=== PATIENT | female | born 1995 | race Caucasian/White ===

== ENCOUNTER 2025-01-26 20:14 | Emergency (ER) | payer BC, SELFPAY ==
[2025-01-26 20:21] VITALS: BP 143/105
--- NOTE | 2025-01-26 21:00 | ED.CVA ---
History of Present Illness
General
Chief Complaint: CVA/TIA Symptoms
Source: patient and significant other
Time Seen by Provider: 01/26/25 20:42
Onset of Stroke Symptoms
Onset of symptoms known: Yes
Date of onset of symptoms: 01/26/25
History of Present Illness
History of Present Illness:
This patient is a 29-year-old female with a history of migraines with aura. A typical migraine with aura is described as 'ripples' in her right visual field that gradually gets larger over period of 5 to 10 minutes and then self resolves. Rarely
she will get an associated mild headache. She says this has happened since she has been in college, but infrequently. It has been happening more frequently recently, most recently a few weeks ago. Today, she developed what she describes as a
typical 'aura' described as something happening in her right visual field described as ripples that grew in size. However, she also had a very short-lived episode of feeling like she could not formulate words. This made her very anxious. She
wondered whether or not it was related to hypoglycemia so on her way here she went to a store and intentionally ingested several sugar packets as well as Oreos, orange juice. She is now asymptomatic. She denies numbness, chest pain, shortness of
breath, double vision, slurred speech, neck pain, recent trauma, nausea, vomiting, abdominal pain, dizziness, difficulty walking. She described feeling weak in her right arm and leg that lasted just a moment or 2, when asked to describe this
further she said it just felt 'off', but she was able to move her right arm and leg as usual and perform typical tasks. Patient is on Zepbound and just took her injection yesterday. She has been on this medication for several months/almost a year.
Past History
Past History
ED Past Medical History: Hyperthyroidism and Other (Migraine with aura)
ED Past Surgical History: Other
Social History
Tobacco: Non-smoker
Alcohol: Occasional
Drug: None
Employment: Employed
Phy Exam
Physical Exam
Physical Exam:
GENERAL: Alert , in no apparent distress
EYE: pupils equal and reactive, no photophobia, EOMI, no nystagmus
NECK: Supple, no significant adenopathy.
ENT: o/p clr, mmm.
CARDIAC: Regular rate and rhythm .
LUNGS: Clear breath sounds bilaterally, no acute respiratory distress, no wheezes/rales/rhonchi
ABDOMEN: Soft, without focal tenderness, no r/g, no cvat
NEUROLOGICAL: Alert and oriented, no focal neuro deficits, NIH equal to 0, [id number] normal, motor 5 out of 5, sensory intact, cranial nerves II through XII intact, gait normal
SKIN: Warm and dry, skin intact.
MUSCULOSKELETAL: No edema, well perfused.
PSYCH: Normal and appropriate interaction.
Course
Orders/Labs/Results
Orders:
Orders
01/26/25 21:00
CT Head W/o Iv Contrast Urgent
Comment:
Reason For Exam: weakness, visual complnts, etc
Cardiac Monitoring- Treatment ONCE
Test Result ONCE
01/26/25 21:11
Complete Blood Count/No Diff Urgent
Comprehensive Metabolic Panel Urgent
HCG, Serum Qualitative Screen Urgent
TSH Urgent
Comment: ADD ON
01/26/25 21:58
CT Head & Neck Angio W/wo IV Urgent
Comment:
Reason For Exam: visual changes, speech difficulty
01/26/25 22:02
Add On- LAB Urgent
Tests Added?: tsh
Abnormal Lab Results
01/26/25
21:11
Sodium 134 L mmol/L
(135-145)
01/26/25 21:11
01/26/25 21:11
Vital Signs
Initial and Last Documented VS:
Initial Vital Signs
Temp Pulse Resp BP Pulse Ox
97.4 F 95 16 143/105 100
01/26/25 20:21 01/26/25 20:21 01/26/25 20:21 01/26/25 20:21 01/26/25 20:21
Last Documented Vital Signs
Temp Pulse Resp BP Pulse Ox
97.4 F 86 24 107/64 97
01/26/25 20:21 01/26/25 22:15 01/26/25 22:15 01/26/25 22:00 01/26/25 22:15
*Pulse Oximetry
SaO2: 100
Oxygen Mode of Delivery: Room air
Patient hypoxic: no
*Critical Care Note
Total Time (30-74mins, 75-104mins- exclusive of procedures): Not Applicable
Update Note
Update Note:
Patient presents to the Emergency Department with ___visual abnormalities associated with word finding difficulties and questionable weakness
Number and Complexity of Problems Addressed at the Encounter
� Chronic conditions affecting care:
� Acute Exacerbation and/or Progression of Chronic Illness:
� Differential Diagnosis includes: But not limited to migraine with aura, anxiety, TIA, etc. etc.
Amount and/or Complexity of Data to be Reviewed and Analyzed
� I performed an independent evaluation of and my interpretation is:
EKG:
CT:[facility]
[address] [place] [id number]
[phone]
Patient Name: SOWMYA LOVING
: 1995
Unit Number: [id number]
Age/Sex: 29/F
Patient
Location: EMR
Order Provider: Ajnana Mccartney MD
Exam Service Date: 01/26/25

Diagnostic Imaging Report
SignedOrder #:[id number]
Exams: CT Head & Neck Angio W/wo IV
PROCEDURE: CTA HEAD and NECK with and without IV contrast
CLINICAL INDICATION: Visual changes. Speech difficulty.
TECHNIQUE: A CTA examination of the head and neck was performed following the administration of nonionic intravenous contrast material. Coronal and sagittal reformatted images were obtained. 3-D reformatted images were obtained. Automatic exposure
control radiation dose reduction technology was utilized. NASCET criteria were utilized for evaluation of internal carotid artery stenosis.
COMPARISON: None.
FINDINGS:
HEAD CTA:
The anterior and posterior circulation is patent. No high-grade stenosis or occlusion. No intracranial aneurysm. The intracranial segments of the bilateral internal carotid arteries are patent. The basilar artery is patent. The distal segments of
the bilateral vertebral arteries are patent.
NECK CTA:
The bilateral common carotid, internal carotid, and external carotid arteries are patent. No high-grade stenosis or occlusion.
The bilateral vertebral arteries are patent.
The aortic arch branch vessels are patent.
IMPRESSION:
No CTA evidence for high-grade stenosis or occlusion in the [place] or the arterial vasculature of the neck.
Xrays:
Laboratory Studies: Generally unremarkable
Other:
� Review of other/old records reveals:
� Clinical information was obtained by an independent historian: Significant other who is bedside and was with her during these events and confirms that patient did not have slurred speech, facial droop, visible
hemiaplasia/weakness, etc. she also confirms that patient had short-lived word finding difficulty
� Prescriptions/Medications Considered but not given:
� Further testing considered but not performed:
Risk of Complications and/or Morbidity or Mortality of Patient Management
� Social determinants of health affecting care:
� Discussion with other providers (PCP, Hospitalists, Consultants, etc):
� Escalation of care including admission/observation vs risk of discharge considered: Patient remains neurologically intact here, no symptoms. Given unremarkable workup here, highly doubt acute neurovascular event such as bleed,
ischemic stroke, etc. Symptoms very consistent with migraine with aura. Will refer for neuro follow-up.
ED Attending Note
-
Portions of this chart may have been created with voice recognition software.� Occasional wrong word or��sound alike� substitutions may have occurred due to the inherent limitations of voice recognition software.
Discharge Plan
Departure
Patient Disposition: Home (Routine Discharge)
Date of Disposition: 01/26/25
Time of Disposition: 23:32
Patient with high blood pressure during this ER visit?: Yes
Condition: Good
Discharge Problem:
Migraine aura without headache
Instructions: Migraine in adults, BLOOD PRESSURE
Prescriptions:
No Action
Zepbound auto-injector
Referrals:
Kelley Matute DO [Family Provider, Family Practice]
Narendra Handley MD [Active, Neurology] - Call in 1-3 days for appt
Activity Restrictions/Additional Instructions:
PLEASE SEE THE NEUROLOGIST IN CLOSE FOLLOW UP. IF YOU DEVELOP SEVERE HEADACHE, ANY NECK PAIN, FEVER, CHANGE IN VISION/SPEECH/BALANCE, WEAKNESS, NUMBNESS, OR OTHER WORRISOME SIGNS, GO TO THE ER IMMEDIATELY!
Interventions
Interventions:
*Risk Screen - Suicide Last Done: 01/26/25 20:21
*General Assessment Last Done: 01/26/25 20:21
*Neglect/Abuse Screening Last Done: 01/26/25 20:21
*ED- Fall Risk Assessment Last Done: 01/26/25 20:21
*ED COVID-19 Vaccine History Last Done: 01/26/25 20:21
*ED Influenza Vaccine History Last Done: 01/26/25 20:21
*Nursing Disposition Last Done: 01/26/25 23:41
ED- Pulmonary Assessment Last Done: 01/26/25 21:30
ED- Neurological Assessment Last Done: 01/26/25 21:30
ED- Cardiac Assessment Last Done: 01/26/25 21:30
ED Swallowing Screen Last Done: 01/26/25 21:30
Discharge Date and Time
Discharge Date/Time: 01/26/25 23:42
Print Language: [place]
[2025-01-26 21:20] LABS: Hematocrit 37.5 % (37.0-47.0); Hemoglobin 12.8 g/dL (12.0-16.0); Mean Corp Hgb Conc. 34.1 g/dL (33.0-37.0); Mean Corpuscular Volume 81.0 fL (81.0-99.0); Platelet Count 350 10^3/uL (130-400); Red Cell Dist. Width 12.6 % (11.5-14.5)
[2025-01-26 21:25] VITALS: BP 107/65
[2025-01-26 21:36] LABS: HCG, Serum Qualitative Screen Negative
[2025-01-26 21:38] LABS: ALT (SGPT) 12 U/L (0-35); AST (SGOT) 18 U/L (14-36); Albumin 4.4 g/dl (3.5-5.0); Alkaline Phosphatase 43 U/L (38-126); Blood Urea Nitrogen 9 mg/dl (7-17); Calcium 9.9 mg/dl (8.4-10.2); Carbon Dioxide 28 mmol/L (22-30); Chloride 102 mmol/L (98-107); Glucose 77 mg/dl (70-99); Potassium 3.7 mmol/L (3.5-5.1); Sodium 134 mmol/L (135-145); Total Protein 7.1 g/dl (6.3-8.2); eGFR > 60.00
[2025-01-26 22:00] VITALS: BP 107/64
[2025-01-26 23:53] LABS: TSH 3.51 uIU/ml (0.47-4.68)
== END 2025-01-26 23:42 | disposition home or self-care (01) ==
LOC: EMR 20:14
PROVIDERS: EMERGENCY PHYSICIAN Emergency Medicine; FAMILY PHYSICIAN Student in an Organized Health Care Education/Training Program
DX: G43.109 Migraine with aura, not intractable, without status migrainosus (principal)
CPT/HCPCS: 99284; 70450; 70496; 70498; 80053; 84443; 84703; 85027; Q9967